=== PATIENT | female | born 1955 | race Caucasian/White ===

== ENCOUNTER 2019-06-24 11:37 | Emergency (ER) | payer BC ==
[2019-06-24 12:41] LABS: ABSOLUTE NEUTROPHIL COUNT 3.23; BASO % 0.8 % (0-6); GRAN % 60.8 % (47-80); HEMATOCRIT 42.4 % (35.0-47.0); HEMOGLOBIN 13.9 gm/dl (11.6-16.0); LYMPH % 24.3 % (16-45); MEAN CELL VOLUME 86.9 fl (81-97); MEAN CORPUSCULAR HEMOGLOBIN 28.5 pg (27-33); MEAN CORPUSCULAR HGB CONC 32.8 g/dl (32-36); MEAN PLATELET VOLUME 9.5 fl (7.4-10.4); MONO % 8.1 % (0-9); PLATELET COUNT 232 K/uL (130-400); RED BLOOD COUNT 4.88 M/uL (3.80-5.40); RED CELL DISTRIBUTION WIDTH 13.6 % (11.5-14.5); WHITE BLOOD COUNT W/O DIFF 5.3 K/uL (4.2-12.2)
[2019-06-24 12:56] LABS: BLOOD UREA NITROGEN 17 mg/dL (8-23); EST GLOMERULAR FILTRATION RATE 59 mL/min
[2019-06-24 12:59] LABS: GLUCOSE,RANDOM 101 mg/dL (74-109)
--- NOTE | 2019-06-24 13:45 | Emergency Department Record ---
History of Present Illness - General Chief complaint: Lower Extremity Pain Stated complaint: POSSIBLE BLOOT CLOT/LFT LEG Time Seen by Provider: 06/24/19 11:57 Source: Patient Mode of Arrival: Ambulatory Limitations: No limitations - History of Present Illness Initial comments: pt has pain in her leg that feels like previous dvts. she also has has sweat ing, dizziness and sob MD Complaint: Extremity pain, Extremity swelling Onset/Timin -: Days(s) Improves with: Nothing Worsens with: Nothing Associated Symptoms: Denies other symptoms - Related Data Home Medications Medication Instructions Recorded Confirmed Last Taken Aspirin Chewable 81 mg PO DAILY 06/24/19 06/24/19 06/24/19 Cholecalciferol (Vitamin D3) 2,000 unit PO DAILY 06/24/19 06/24/19 06/24/19 [Vitamin D3] Dicyclomine HCl [Bentyl] 10 mg PO ASDIR 06/24/19 06/24/19 Unknown Echinacea 380 mg PO DAILY 06/24/19 06/24/19 06/24/19 Levothyroxine Sodium 25 mcg PO DAILY 06/24/19 06/24/19 06/24/19 Magnesium 200 mg PO DAILY 06/24/19 06/24/19 06/24/19 Omeprazole 20 mg PO DAILY 06/24/19 06/24/19 06/24/19 Allergies Allergy/AdvReac Type Severity Reaction Status Date / Time No Known Drug Allergies Allergy Verified 06/24/19 11:56 Travel Screening - Travel/Exposure Within Last 30 Days Have you traveled within the last 30 days?: No Review of Systems Reviewed: No additional complaints except as noted below Constitutional: Reports: As per HPI. Denies: Chills, Fever, Malaise, Night sweats, Weakness, Weight change Eyes: Reports: As per HPI. Denies: Eye discharge, Eye pain, Photophobia, Vision change ENT: Reports: As per HPI. Denies: Congestion, Dental pain, Ear pain, Epistaxis, Hearing loss, Throat pain Respiratory: Reports: As per HPI. Denies: Cough, Dyspnea, Hemoptysis, Stridor, Wheezes Cardiovascular: Reports: As per HPI. Denies: Arrhythmia, Chest pain, Dyspnea on exertion, Edema, Murmurs, Orthopnea, Palpitations, Paroxysmal nocturnal dyspnea, Rheumatic Fever, Syncope Endocrine: Reports: As per HPI. Denies: Fatigue, Heat or cold intolerance, Polydipsia, Polyuria Gastrointestinal: Reports: As per HPI. Denies: Abdominal pain, Constipation, Diarrhea, Hematemesis, Hematochezia, Melena, Nausea, Vomiting Genitourinary: Reports: As per HPI. Denies: Abnormal menses, Discharge, Dyspareunia, Dysuria, Frequency, Hematuria, Incontinence, Retention, Urgency Musculoskeletal: Reports: As per HPI. Denies: Arthralgia, Back pain, Gout, Joint swelling, Myalgia, Neck pain Skin: Reports: As per HPI. Denies: Bruising, Change in color, Change in hair/nails, Lesions, Pruritus, Rash Neurological: Reports: As per HPI. Denies: Abnormal gait, Confusion, Headache, Numbness, Paresthesias, Seizure, Tingling, Tremors, Vertigo, Weakness Psychiatric: Reports: As per HPI. Denies: Anxiety, Auditory hallucinations, Depression, Homicidal thoughts, Suicidal thoughts, Visual hallucinations Hematological/Lymphatic: Reports: As per HPI. Denies: Anemia, Blood Clots, Easy bleeding, Easy bruising, Swollen glands Past Medical History - SOCIAL HISTORY Smoking Status: Never smoker Alcohol Use: None Drug Use: None - RESPIRATORY Hx Respiratory Disorders: No - CARDIOVASCULAR Hx Cardio Disorders: No - NEURO Hx Neuro Disorders: Yes Hx Headaches: Yes - GI Hx GI Disorders: Yes Hx Reflux: Yes - Hx Genitourinary Disorders: Yes Comment:: cysts on kidneys - ENDOCRINE Hx Endocrine Disorders: Yes Hx Thyroid Disease: Yes - MUSCULOSKELETAL Hx Musculoskeletal Disorders: Yes Comment:: OA - PSYCH Hx Psych Problems: No - HEMATOLOGY/ONCOLOGY Hx Hematology/Oncology Disorders: No Family Medical History Any Significant Family History?: Yes Family Hx Comment (NOT TO BE USED IN PLACE OF ITEMS BELOW): thyroid-dad, brother sister, son Hx Cancer: Father, Brother/Sister, Grandparents Physical Exam - General General Appearance: Alert, Oriented x3, Cooperative, Mild distress - Head Head exam: Normal inspection - Eye Eye exam: Normal appearance, PERRL, EOMI Pupils: Normal accommodation - ENT ENT exam: Normal exam, Mucous membranes moist, Normal external ear exam, Normal orophraynx Ear exam: Normal external inspection. negative: External canal tenderness Nasal Exam: Normal inspection. negative: Discharge, Sinus tenderness Mouth exam: Normal external inspection, Tongue normal Teeth exam: Normal inspection. negative: Dental caries Throat exam: Normal inspection. negative: Tonsillar erythema, Tonsillar exudate - Neck Neck exam: Normal inspection, Full ROM. negative: Tenderness - Respiratory Respiratory exam: Normal lung sounds bilaterally. negative: Respiratory distress - Cardiovascular Cardiovascular Exam: Regular rate, Normal rhythm, Normal heart sounds - GI/Abdominal GI/Abdominal exam: Soft, Normal bowel sounds. negative: Tenderness - Rectal Rectal exam: Deferred - exam: Deferred - Extremities Extremities exam: Normal inspection, Full ROM, Normal capillary refill, Tenderness (l calf) - Back Back exam: Reports: Normal inspection, Full ROM. Denies: Muscle spasm, Rash noted, Tenderness - Neurological Neurological exam: Alert, CN II-XII intact, Normal gait, Oriented X3, Reflexes normal - Psychiatric Psychiatric exam: Normal affect, Normal mood - Skin Skin exam: Dry, Intact, Normal color, Warm Course Vital Signs 06/24/19 11:44 Temperature 97.5 F L Pulse Rate [ 67 Pulse Ox Probe] Respiratory 16 Rate Blood Pressure 144/86 [Left Arm] Pulse Ox 93 L - Reevaluation(s) Reevaluation #1: 06/24/19 16:58 ct neg for pe. pos for renal cysts and hiatal hernia Reevaluation #2: 06/24/19 16:59 pt feels better Medical Decision Making - Lab Data Result diagrams: 06/24/19 12:35 06/24/19 12:35 Lab Results 06/24/19 06/24/19 Range/Units 12:35 12:35 WBC 5.3 (4.2-12.2) K/uL RBC 4.88 (3.80-5.40) M/uL Hgb 13.9 (11.6-16.0) gm/dl Hct 42.4 (35.0-47.0) % MCV 86.9 (81-97) fl MCH 28.5 (27-33) pg MCHC 32.8 (32-36) g/dl RDW 13.6 (11.5-14.5) % Plt Count 232 (130-400) K/uL MPV 9.5 (7.4-10.4) fl Gran % 60.8 (47-80) % Lymphocytes % 24.3 (16-45) % Monocytes % 8.1 (0-9) % Eosinophils % 6.0 (0-6) % Basophils % 0.8 (0-6) % Absolute Neutrophils 3.23 Sodium 145 (136-145) mmol/L Potassium 3.8 (3.4-4.5) mmol/L Chloride 108 H (98-107) mmol/L Carbon Dioxide 25.0 (22-29) mmol/L Anion Gap 12.0 (7-16) BUN 17 (8-23) mg/dL Creatinine 1.0 H (0.5-0.9) mg/dL Estimated GFR 59 mL/min Random Glucose 101 (74-109) mg/dL Calcium 9.0 (8.8-10.2) mg/dL Troponin T < 0.010 (0-0.010) ng/mL Disposition Disposition: Discharge Clinical Impression: Dizziness Leg pain Qualifiers: Laterality: left Qualified Code(s): M79.605 - Pain in left leg Disposition: Home, Self-Care Condition: (1) Good Instructions: Muscle Strain (ED), Dizziness (ED) Additional Instructions: follow up with family doctor. return sooner if worse Quality - Quality Measures Quality Measures: N/A - Blood Pressure Screening Does Patient Have Any of the Following: No Blood Pressure Classification: Pre-Hypertensive BP Reading Systolic Measurement: 137 Diastolic Measurement: 83 Screening for High Blood Pressure: < Pre-Hypertensive BP, F/U Documented > [G8950] Pre-Hypertensive Follow-up Interventions: Follow-up with rescreen every year.
[2019-06-24] MEDS: 0.9 % SODIUM CHLORIDE 1,000 ML BAG IV ONE (16:13)
--- NOTE | 2019-06-25 14:35 | US VENOUS DOPPLER REPORT ---
EXAM: LEFT LOWER EXTREMITY VENOUS DOPPLER ULTRASOUND HISTORY: PAINFUL LUMP BEHIND LEFT KNEE FOR TWO DAYS. TECHNIQUE: Lowe scale, color Doppler and Duplex Doppler evaluation of the deep venous structures of the left lower extremity were performed from the level of the external iliac vein through the calf veins. Imaging of the right external iliac, common femoral and greater saphenous veins were also performed. Comparison: None. FINDINGS: On the left, the external iliac, common femoral, deep femoral, greater saphenous, superficial femoral and popliteal veins are anechoic and completely compressible throughout. Normal venous waveforms are noted at all of these levels. These waveforms are augmentable. Color Doppler and lowe scale imaging of the peroneal, posterior tibial, and anterior tibial veins on the left. These do not demonstrate thrombus. No evidence of thrombus within the right external iliac, common femoral, nor greater saphenous veins. No suspicious mass or fluid collection in the area of pain. IMPRESSION: NO EVIDENCE OF DEEP VENOUS THROMBOSIS WITHIN THE LEFT LOWER EXTREMITY. JOB NUMBER: [id number] [facility]
--- NOTE | 2019-06-25 14:52 | CT ANGIOGRAM REPORT ---
EXAM: CT ANGIOGRAPHY OF THE THORAX HISTORY: SHORTNESS OF BREATH. TECHNIQUE: CT angiography of the thorax was performed following intravenous contrast administration. Type and amount of contrast are recorded in the medical record. Coronal and sagittal post process MIP images are performed on an independent workstation as part of this examination. Comparison: None. FINDINGS: There are no pulmonary emboli identified. No aortic aneurysm or aortic dissection seen. There is no pleural or pericardial effusion. There is no area of lung consolidation. There is no lung mass or lung nodule identified. There is a small hiatal hernia present. There are a few nonspecific mediastinal lymph nodes. No lytic or blastic bone lesion. Upper abdominal images demonstrate large bilateral renal cysts which are partially included on this exam. The gallbladder is surgically absent. The upper abdomen is otherwise unremarkable. IMPRESSION: 1. NO PULMONARY EMBOLI ARE SEEN. NO AORTIC ANEURYSM OR AORTIC DISSECTION. 2. NO ACUTE THORACIC PROCESS. 3. SMALL HIATAL HERNIA. 4. LARGE BILATERAL RENAL CYSTS WHICH ARE PARTIALLY INCLUDED ON THIS EXAMINATION. NONEMERGENT CT OF THE ABDOMEN COULD BE PERFORMED FOR THEIR FURTHER ASSESSMENT. JOB NUMBER: [id number] [facility]
== END 2019-06-24 17:00 | disposition home or self-care (01) ==
LOC: ER 11:37
DX: R42 Dizziness and giddiness (principal); M79.605 Pain in left leg; R06.02 Shortness of breath; R79.89 Other specified abnormal findings of blood chemistry; Z86.718 Personal history of other venous thrombosis and embolism
CPT/HCPCS: 71275; 80048; 84484; 85025; 85379; 99284; J7030

== ENCOUNTER 2019-07-21 14:12 | Emergency (ER) | payer BC ==
--- NOTE | 2019-07-21 14:39 | Emergency Department Record ---
History of Present Illness - General Chief Complaint: Ankle/Foot Injury Stated Complaint: LT FOOT TOE INJURY Time Seen by Provider: 07/21/19 14:19 Source: Patient Mode of Arrival: Ambulatory Limitations: No limitations - History of Present Illness Initial Comments: The patient is here due to L 2nd toe pain. She tripped on the steps and injured her L 2nd toe. She denies any ankle or foot pain except for the toe. MD Complaint: Foot injury Onset/Timin -: Minutes(s) Severity scale (1-10): 4 Improves With: Nothing Worsens With: Nothing - Related Data Home Medications Medication Instructions Recorded Confirmed Last Taken Dicyclomine HCl [Bentyl] 10 mg PO TID 07/21/19 07/21/19 Unknown Estrogens, Conjugated [Premarin] 0.625 mg PO ASDIR 07/21/19 07/21/19 Unknown Gabapentin [Neurontin] 400 mg PO TID PRN 07/21/19 07/21/19 Unknown Allergies Allergy/AdvReac Type Severity Reaction Status Date / Time No Known Drug Allergies Allergy Verified 07/21/19 14:37 Travel Screening - Travel/Exposure Within Last 30 Days Have you traveled within the last 30 days?: No - Travel/Exposure Within Last Year Have you traveled outside the [place] in the last year?: No - Additonal Travel Details Have you been exposed to anyone with a communicable illness?: No - Travel Symptoms Symptom Screening: None Review of Systems Constitutional: Denies: Chills, Fever Eyes: Denies: Eye discharge ENT: Denies: Congestion Respiratory: Denies: Cough Past Medical History - SOCIAL HISTORY Smoking Status: Never smoker Alcohol Use: None Drug Use: None - RESPIRATORY Hx Respiratory Disorders: No - CARDIOVASCULAR Hx Cardio Disorders: No - NEURO Hx Neuro Disorders: Yes Hx Headaches: Yes - GI Hx GI Disorders: Yes Hx Reflux: Yes - Hx Genitourinary Disorders: Yes Comment:: cysts on kidneys - ENDOCRINE Hx Endocrine Disorders: Yes Hx Diabetes: No Hx Thyroid Disease: Yes - MUSCULOSKELETAL Hx Musculoskeletal Disorders: Yes Comment:: OA - PSYCH Hx Psych Problems: No - HEMATOLOGY/ONCOLOGY Hx Hematology/Oncology Disorders: No Family Medical History Any Significant Family History?: No Family Hx Comment (NOT TO BE USED IN PLACE OF ITEMS BELOW): thyroid-dad, brother sister, son Hx Cancer: Father, Brother/Sister, Grandparents Physical Exam - General General Appearance: Alert, Cooperative, No acute distress - Head Head exam: Atraumatic - Eye Eye exam: Normal appearance - Extremities Extremities exam: Normal capillary refill, Tenderness (to the L 2nd toe.). negative: Normal inspection (There is a deformity of the L 2nd toe. There is no metatarsal or ankle tenderness.), Calf tenderness, Full ROM, Joint swelling - Neurological Neurological exam: Alert, Normal gait, Oriented X3. negative: Abnormal gait, Motor sensory deficit - Psychiatric Psychiatric exam: negative: Anxious Course Vital Signs 07/21/19 14:19 Temperature 97.6 F Pulse Rate 74 Respiratory 16 Rate Blood Pressure 148/105 Pulse Ox 98 - Reevaluation(s) Reevaluation #1: Procedure note: The L foot 2nd toe was anesth. with 2 cc's of Lido 1%. The PIP dislocation was reduced without difficulty. There were no complications and a successful reduction by xray. 07/21/19 15:10 Medical Decision Making - Data Complexity MDM Data: X-Ray Ordered and/or Reviewed - Radiology Data Radiology results: Report reviewed (L foot: Dislocated L 2nd toe PIP joint. Post-reduction: successful reduction of PIP dislocation with no fx.) Disposition Disposition: Discharge Clinical Impression: Dislocation of toe of left foot Qualifiers: Encounter type: initial encounter Qualified Code(s): S93.105A - Unspecified dislocation of left toe(s), initial encounter Disposition: Home, Self-Care Condition: (2) Stable Instructions: Foot Contusion (ED) Additional Instructions: Please keep the toes jah taped for 1-2 weeks and use your home pain medicines as needed. Return to the ER for any worsening symptoms. Forms: Patient Portal Access Time of Disposition: 15:12 Quality - Quality Measures Quality Measures: N/A - Blood Pressure Screening View Details: Yes Does Patient Have Any of the Following: No Blood Pressure Classification: Hypertensive Reading Systolic Measurement: 148 Diastolic Measurement: 105 Screening for High Blood Pressure: < First Hypertensive BP, F/U Documented > [G8950] First Hypertensive Follow-up Interventions: Referral to alternative/primary care provider.
--- NOTE | 2019-07-23 08:17 | RADIOLOGY REPORT ---
EXAM: LEFT FOOT, THREE VIEWS HISTORY: PAIN AND DEFORMITY OF THE LEFT SECOND TOE POST FALL. TECHNIQUE: Three views of the left foot were obtained. Comparison: None. Encounter: Initial. FINDINGS: There is mild diffuse osteopenia. There is evidence of a dislocation of the second PIP joint with the base of the second middle phalanx dislocated dorsally relative to the second proximal phalanx head. No definite fracture is seen though post reduction imaging is recommended. No other evidence of dislocation nor definite osseous fracture. Mild degenerative changes scattered throughout the foot. There is mild calcaneal spurring. IMPRESSION: 1. DISLOCATION OF THE SECOND PIP JOINT, DISCUSSED ABOVE. NO DEFINITE FRACTURE IS SEEN THOUGH POST REDUCTION IMAGES ARE RECOMMENDED. 2. MILD DEGENERATIVE CHANGES SCATTERED THROUGHOUT THE FOOT. MILD CALCANEAL SPURRING. [facility]BER: [id number] [facility]
--- NOTE | 2019-07-23 08:23 | RADIOLOGY REPORT ---
EXAM: LEFT SECOND TOE HISTORY: LEFT SECOND TOE INJURY. POST REDUCTION. TECHNIQUE: Multiple views of the left second toe were obtained. Comparison: Same day radiographic examination of the left foot obtained at 14:33. FINDINGS: There has been interval reduction of the previously demonstrated second PIP joint dislocation. No definite acute acute fracture is seen though evaluation is somewhat limited on the lateral view due to superimposition of osseous structures. There are mild degenerative changes within the visualized IP joints and first MTP joint. IMPRESSION: INTERVAL REDUCTION OF THE PREVIOUSLY DEMONSTRATED SECOND PIP JOINT DISLOCATION. NO DEFINITE FRACTURE. J[facility] NUMBER: [id number] [facility]
== END 2019-07-21 15:18 | disposition home or self-care (01) ==
LOC: ER 14:12
DX: S93.115A Dislocation of interphalangeal joint of left lesser toe(s), initial encounter (principal); W10.9XXA Fall (on) (from) unspecified stairs and steps, initial encounter; Y92.009 Unspecified place in unspecified non-institutional (private) residence as the place of occurrence of the external cause
CPT/HCPCS: 28660; 73660; 99284